=== PATIENT | female | born 1950 | race Caucasian/White ===

== ENCOUNTER 2025-07-17 20:33 | Emergency (ER) | payer MEDICARE ==
[~2025-07-17] VITALS: Ht 165.1 cm; Wt 66.0 kg
[2025-07-17 20:39] VITALS: O2SAT 98
[2025-07-17] MEDS: ACETAMINOPHEN 325MG TABLET PO ONE (22:19)
[2025-07-17] MEDS ORDERED: MORPHINE SULFATE 2 MG/ML INJ (NOT FOR IM USE) IV ONE (23:15)
[2025-07-17] MEDS: MORPHINE SULFATE 4 MG/ML INJ (FOR IV/IM USE) IV NR (23:38)
[2025-07-18 00:06] LABS: BASOPHILS % 0.6 % (0.0-2.0); EOSINOPHILS % 0.7 % (0.0-5.0); HEMATOCRIT. 35.1 % (36.0-48.0); HEMOGLOBIN. 12.1 g/dL (12.0-16.0); LYMPHOCYTES % 31.1 % (20.0-50.0); MEAN PLATELET VOLUME 8.3 fl (7.4-10.4); MONOCYTES % 6.1 % (2.0-8.0); NEUTROPHILS % 61.5 % (40.0-76.0); PLATELET 198 x1000/uL (130-400); RED BLOOD CELL COUNT 3.68 mill/uL (4.2-5.4); RED CELL DISTRIBUTION WIDTH 13.0 % (11.6-14.6)
[2025-07-18 00:20] LABS: CREATININE 0.7 mg/dL (0.6-1.0); UREA NITROGEN BLOOD 10 mg/dL (9-23)
[2025-07-18 00:21] LABS: INR 1.0
[2025-07-18 02:00] VITALS: BP 124/64; PULSE 79; RESP 14; TEMP 36.9; O2SAT 98
== END 2025-07-18 03:06 | disposition left against medical advice (07) ==
LOC: ER 20:33 → EDBEDREQ 23:08 → EDBEDREQTM 23:08 → ENRESERV 23:26 → CANRESERV 23:26 → ENRESERV 07-18 02:07 → ER 07-18 03:06 → CMPBEDREQ 07-18 08:00
DX: S06.30AA Unspecified focal traumatic brain injury with loss of consciousness status unknown, initial encounter (principal); M17.11 Unilateral primary osteoarthritis, right knee; I10 Essential (primary) hypertension; Z96.641 Presence of right artificial hip joint; Z79.01 Long term (current) use of anticoagulants; Z86.73 Personal history of transient ischemic attack (TIA), and cerebral infarction without residual deficits; W01.10XA Fall on same level from slipping, tripping and stumbling with subsequent striking against unspecified object, initial encounter; Y93.89 Activity, other specified; Y92.89 Other specified places as the place of occurrence of the external cause; Y99.8 Other external cause status
CPT/HCPCS: 36415; 73562; 80048; 85025; 86850; 86900; 99291; J2270